=== PATIENT | male | born 1960 | race Caucasian/White ===

== ENCOUNTER 2022-12-12 10:47 | Emergency (ER) | payer MEDICAID ==
[~2022-12-12] VITALS: Ht 182.9 cm; Wt 90.7 kg
[2022-12-12 11:04] VITALS: BP_SYST 158
--- NOTE | 2022-12-12 11:12 | NUR ---
EMT at bedside now performing EKG
[2022-12-12] MEDS ORDERED: LORazepam 2 MG/ML VIAL IVP ONE ×2 (11:15→13:00)
[2022-12-12] MEDS ORDERED: NS 1000 ML IV.SOLN IV ONE (11:15)
[2022-12-12] MEDS ORDERED: ONDANSETRON HCL 4 MG/2 ML VIAL IVP ONE (11:15)
--- NOTE | 2022-12-12 11:19 | NUR ---
ER at bedside examining patient.
[2022-12-12] MEDS ORDERED: NACL 0.9% 1,000 ML IV ONE (11:30)
[2022-12-12] MEDS ORDERED: FOLIC ACID 1 MG, THIAMINE HCL 100 MG, MAGNESIUM SULFATE 1 GM, MVI 10 ML in NACL 0.9% 1,... IV ONE (11:30)
--- NOTE | 2022-12-12 11:36 | NUR ---
lab at bedside now
--- NOTE | 2022-12-12 11:37 | NUR ---
# 20 gauge angiocath placed to LAC. Use of asceptic technique. Opsite placed over site. Blood return noted. Blood for lab drawn from site. Flushed with 10 cc of normal saline. No evidence of infiltration noted. Patient tolerated well.
--- NOTE | 2022-12-12 11:37 | NUR ---
Note josh in EDM - 12/12/22 at 1149 by [email or web address] # [] gauge angiocath placed to []. Use of asceptic technique. Opsite placed over site. Blood return noted. Blood for lab drawn from site. Flushed with 10 cc of normal saline. No evidence of infiltration noted. Patient tolerated well.
--- NOTE | 2022-12-12 11:45 | NUR ---
Banana bag requested from pharmacy
[2022-12-12 11:50] LABS: EOSINOPHILS % (AUTO) 0.2 % (0.0-4.0); LYMPHOCYTES # (AUTO) 3.4 K/uL (1.0-5.5); MONOCYTES # (AUTO) 0.6 K/uL (0.0-1.0); NEUTROPHILS # (AUTO) 3.6 K/uL (1.8-7.7); WHITE BLOOD COUNT (AUTO) 7.7 K/uL (4.8-10.8)
[2022-12-12 11:57] LABS: BASOPHILS # (AUTO) 0.1 K/uL (0.0-0.2); BASOPHILS % (AUTO) 1.6 % (0.0-2.0); HEMATOCRIT 45.4 % (36-54); HEMOGLOBIN 15.3 g/dL (14.0-18.0); LYMPHOCYTES % (AUTO) 43.7 % (20.5-51.5); MEAN CORPUSCULAR HEMOGLOBIN 31 pg (27-31); MEAN CORPUSCULAR HGB CONC 34 % (32-36); MEAN CORPUSCULAR VOLUME 92 fL (79.0-98.0); MONOCYTES % (AUTO) 7.3 % (1.7-9.3); NEUTROPHILS % (AUTO) 47.2 % (40.0-70.0); PLATELET COUNT (AUTO) 127 K/uL (130-430); RED BLOOD CELL COUNT(AUTO) 4.91 MIL/uL (4.2-6.2); RED CELL DISTRIBUTION WIDTH 14.4 % (9.0-15.0)
[2022-12-12 12:04] LABS: CALCIUM 8.4 mg/dL (8.4-11.0); CREATININE 1.19 mg/dL (0.55-1.30)
[2022-12-12 12:08] LABS: ALBUMIN 3.8 g/dL (3.4-4.8); TOTAL BILIRUBIN 0.9 mg/dL (0.0-1.0)
--- NOTE | 2022-12-12 12:17 | NUR ---
Follow up call made to pharmacy for banana bag
[2022-12-12 12:41] LABS: INR 1.1 (0.80-1.20)
--- NOTE | 2022-12-12 12:41 | NUR ---
Pharmacy states banana bag on the way
--- NOTE | 2022-12-12 12:50 | NUR ---
Patient has not provided urine yet, patient states unable to urinate at this time.
[2022-12-12] MEDS ORDERED: THIAMINE HCL 100 MG, MAGNESIUM SULFATE 1 GM in NS 100 ML IV ONE (13:00)
[2022-12-12] MEDS ORDERED: POTASSIUM CHLORIDE 20 MEQ/PKT PACKET PO ONE (13:00)
[2022-12-12] MEDS ORDERED: FOLIC ACID 1 MG, MVI 10 ML in NACL 0.9% 1,000 ML IV ONE (13:00)
[2022-12-12 16:50] VITALS: BP_SYST 153
--- NOTE | 2022-12-12 18:26 | NUR ---
Patient given a sandwich per Dr. Saha request.
--- NOTE | 2022-12-12 18:45 | NUR ---
Patient able to ambulate, michaeler being called now
--- NOTE | 2022-12-12 19:04 | NUR ---
Patient states he drove here. Patient placed in UBER a&ox4 and stable. Patient visualized crossing [facility] [employer]
== END 2022-12-12 18:50 | disposition home or self-care (01) ==
LOC: SED 10:47
DX: F10.239 Alcohol dependence with withdrawal, unspecified (principal); R74.01 Elevation of levels of liver transaminase levels; E87.6 Hypokalemia; R11.0 Nausea; I10 Essential (primary) hypertension; F41.9 Anxiety disorder, unspecified; Z88.2 Allergy status to sulfonamides; Z79.899 Other long term (current) drug therapy; Y90.6 Blood alcohol level of 120-199 mg/100 ml
CPT/HCPCS: 99291; 96365; 96366; 96375; 96361; 80053; 82009; 85025; 85610; 85730; 87040; 36415; 93005; 71045; 96368; 96376; 83605; G0482; J3490; J2060; J3475; J2405; J3411; J7030

== ENCOUNTER 2023-08-25 14:58 | Inpatient (IN) | payer MEDICAID ==
[~2023-08-25] VITALS: Ht 180.3 cm; Wt 90.7 kg
[2023-08-25 15:00] VITALS: BP_SYST 128; PULSE 88; RESP 18; TEMP 97.2; O2SAT 97
[2023-08-25 15:38] LABS: BASOPHILS # (AUTO) 0.1 K/uL (0.0-0.2); BASOPHILS % (AUTO) 1.5 % (0.0-2.0); EOSINOPHILS % (AUTO) 0.3 % (0.0-4.0); HEMATOCRIT 42.3 % (36-54); HEMOGLOBIN 14.6 g/dL (14.0-18.0); LYMPHOCYTES # (AUTO) 1.7 K/uL (1.0-5.5); LYMPHOCYTES % (AUTO) 23.7 % (20.5-51.5); MEAN CORPUSCULAR HEMOGLOBIN 33 pg (27-31); MEAN CORPUSCULAR HGB CONC 35 % (32-36); MEAN CORPUSCULAR VOLUME 95 fL (79.0-98.0); MONOCYTES # (AUTO) 0.9 K/uL (0.0-1.0); MONOCYTES % (AUTO) 12.3 % (1.7-9.3); NEUTROPHILS # (AUTO) 4.4 K/uL (1.8-7.7); NEUTROPHILS % (AUTO) 62.2 % (40.0-70.0); PLATELET COUNT (AUTO) 270 K/uL (130-430); RED BLOOD CELL COUNT(AUTO) 4.46 MIL/uL (4.2-6.2); RED CELL DISTRIBUTION WIDTH 15.1 % (9.0-15.0)
[2023-08-25 16:14] LABS: CALCIUM 8.8 mg/dL (8.4-11.0); CREATININE 1.29 mg/dL (0.55-1.30); POTASSIUM 3.4 mmol/L (3.5-5.1)
[2023-08-25 16:24] LABS: ALBUMIN 3.7 g/dL (3.4-4.8); BILIRUBIN,DIRECT 0.1 mg/dL (0.0-0.3); TOTAL BILIRUBIN 0.6 mg/dL (0.0-1.0); TOTAL PROTEIN, SERUM 7.4 g/dL (6.4-8.3)
[2023-08-25 16:58] LABS: BARBITURATE, URINE NEGATIVE (NEG <=200); BENZODIAZEPINE, URINE POSITIVE (NEG <=150); URINE AMPHETAMINE NEGATIVE (NEG <=500)
[2023-08-25 16:59] LABS: CANNABINOID, URINE NEGATIVE (NEG <=50); COCAINE, URINE NEGATIVE (NEG <=150); METHAMPHETAMINES SCREEN,URINE NEGATIVE (NEG <=500); OPIATE, URINE NEGATIVE (NEG <=100); PHENCYCLIDINE SCREEN,URINE NEGATIVE (NEG <=25); UR TRICYCLIC ANTIDEPRESSANTS NEGATIVE (NEG <=300); URINE METHADONE NEGATIVE (NEG <=200); URINE OXYCODONE SCREEN NEGATIVE (NEG <=100)
[2023-08-25] MEDS: NACL 0.9% 1,000 ML IV ONE (21:35)
[2023-08-25] MEDS: THIAMINE HCL 200 MG/2 ML VIAL IM ONE (21:45)
[2023-08-25] MEDS: LORazepam 2 MG/ML VIAL IVP ONE (21:48)
[2023-08-25 22:10] LABS: ALCOHOL, BLOOD 248 mg/dL (<10); LIPASE 21 U/L (16-77)
[2023-08-26] MEDS: ONDANSETRON HCL 4 MG/2 ML VIAL IVP ONE (02:03)
[2023-08-26] MEDS ORDERED: METO-308 PO (03:02)
[2023-08-26] MEDS ORDERED: SIMV-43 PO (03:02)
[2023-08-26] MEDS ORDERED: ALLO300T2 PO (03:02)
[2023-08-26] MEDS ORDERED: HYDR12.55 PO (03:02)
[2023-08-26] MEDS ORDERED: FOLIC ACID 1 MG, THIAMINE HCL 100 MG, MAGNESIUM SULFATE 1 GM, MVI 10 ML in NACL 0.9% 1,... IV ONE (03:30)
[2023-08-26] MEDS: LORazepam 2 MG/ML VIAL IVP PRN ×2 (04:29→18:26)
[2023-08-26] MEDS: NS 500 ML IV ONE (04:41)
[2023-08-26 04:50] VITALS: BP_SYST 162; PULSE 105; RESP 18; TEMP 98.9; O2SAT 96
[2023-08-26] MEDS: ONDANSETRON HCL 4 MG/2 ML VIAL IVP PRN (06:38)
[2023-08-26] MEDS: FOLIC ACID 1 MG, MVI 10 ML in NACL 0.9% 1,000 ML IV ONE (07:00)
[2023-08-26 08:00] VITALS: BP_SYST 168; PULSE 100; RESP 20; TEMP 98.6; O2SAT 96
[2023-08-26] MEDS: THIAMINE HCL 100 MG, MAGNESIUM SULFATE 1 GM in NS 100 ML IV ONE (09:51)
[2023-08-26] MEDS ORDERED: NALOXONE HCL 0.4 MG/ML AMP (NARCAN) IVP PRN ×2 (10:00)
[2023-08-26] MEDS ORDERED: NON-FORMULARY MEDICATION (Metoprolol Succinate 1 TAB) PO SCH (10:00)
[2023-08-26] MEDS ORDERED: NON-FORMULARY MEDICATION (Hydrochlorothiazide 1 TAB) PO SCH (10:00)
[2023-08-26] MEDS ORDERED: ONDANSETRON HCL 4 MG/2 ML VIAL IVP PRN (10:00)
[2023-08-26] MEDS ORDERED: chlordiazePOXIDE HCL 10 MG CAPSULE PO PRN (10:00)
[2023-08-26] MEDS ORDERED: ACETAMINOPHEN 325 MG TABLET PO PRN ×2 (10:00→10:45)
[2023-08-26] MEDS ORDERED: HYDROcodone/ACETAMIN 5-325 MG TAB (NORCO/ VICODIN) PO PRN (10:00)
[2023-08-26 10:41] LABS: CALCIUM 8.6 mg/dL (8.4-11.0); CREATININE 1.12 mg/dL (0.55-1.30); POTASSIUM 3.5 mmol/L (3.5-5.1)
[2023-08-26 10:44] LABS: EOSINOPHILS % (AUTO) 0.1 % (0.0-4.0); HEMATOCRIT 39.7 % (36-54); HEMOGLOBIN 13.8 g/dL (14.0-18.0); LYMPHOCYTES # (AUTO) 0.7 K/uL (1.0-5.5); LYMPHOCYTES % (AUTO) 19.3 % (20.5-51.5); MEAN CORPUSCULAR HEMOGLOBIN 33 pg (27-31); MEAN CORPUSCULAR HGB CONC 35 % (32-36); MEAN CORPUSCULAR VOLUME 95 fL (79.0-98.0); MONOCYTES # (AUTO) 0.7 K/uL (0.0-1.0); MONOCYTES % (AUTO) 17.9 % (1.7-9.3); NEUTROPHILS # (AUTO) 2.3 K/uL (1.8-7.7); NEUTROPHILS % (AUTO) 61.7 % (40.0-70.0); PLATELET COUNT (AUTO) 200 K/uL (130-430); RED BLOOD CELL COUNT(AUTO) 4.19 MIL/uL (4.2-6.2); RED CELL DISTRIBUTION WIDTH 15.3 % (9.0-15.0); WHITE BLOOD COUNT (AUTO) 3.7 K/uL (4.8-10.8)
[2023-08-26] MEDS: ALLOPURINOL 300 MG TABLET (ZYLOPRIM) PO ONE (11:01)
[2023-08-26] MEDS: METOPROLOL SUCCINATE 50 MG TAB.SR.24H (TOPROL XL) PO ONE (11:04)
[2023-08-26] MEDS: HYDROCHLOROTHIAZIDE 12.5 MG CAPSULE (HCTZ) PO ONE (11:13)
[2023-08-26] MEDS ORDERED: hydrALAZINE HCL 20 MG/ML VIAL IVP PRN (15:15)
[2023-08-26] MEDS ORDERED: dilTIAZem HCL IVP 5 MG/ML VIAL IVP PRN (15:15)
[2023-08-26 16:07] VITALS: BP_SYST 174; PULSE 86; RESP 18; TEMP 101.1; O2SAT 96
[2023-08-26] MEDS: HYDROcodone/ACETAMIN 10-325 MG TAB PO PRN (16:10)
[2023-08-26 20:00] VITALS: BP_SYST 163; PULSE 89; RESP 18; TEMP 99; O2SAT 94
[2023-08-26] MEDS: SIMVASTATIN 20 MG TABLET PO SCH (20:20)
[2023-08-26] MEDS: METOPROLOL TARTRATE 50 MG TABLET PO SCH (20:20)
[2023-08-27 00:10] VITALS: BP_SYST 158; PULSE 70; RESP 16; TEMP 98.7; O2SAT 93
[2023-08-27 05:40] LABS: BASOPHILS # (AUTO) 0.1 K/uL (0.0-0.2); BASOPHILS % (AUTO) 1.2 % (0.0-2.0); EOSINOPHILS % (AUTO) 0.3 % (0.0-4.0); HEMATOCRIT 42.8 % (36-54); HEMOGLOBIN 14.9 g/dL (14.0-18.0); LYMPHOCYTES # (AUTO) 1.1 K/uL (1.0-5.5); LYMPHOCYTES % (AUTO) 22.1 % (20.5-51.5); MEAN CORPUSCULAR HEMOGLOBIN 33 pg (27-31); MEAN CORPUSCULAR HGB CONC 35 % (32-36); MEAN CORPUSCULAR VOLUME 95 fL (79.0-98.0); MONOCYTES # (AUTO) 0.8 K/uL (0.0-1.0); MONOCYTES % (AUTO) 14.6 % (1.7-9.3); NEUTROPHILS # (AUTO) 3.2 K/uL (1.8-7.7); NEUTROPHILS % (AUTO) 61.8 % (40.0-70.0); PLATELET COUNT (AUTO) 212 K/uL (130-430); RED BLOOD CELL COUNT(AUTO) 4.51 MIL/uL (4.2-6.2); RED CELL DISTRIBUTION WIDTH 14.9 % (9.0-15.0); WHITE BLOOD COUNT (AUTO) 5.2 K/uL (4.8-10.8)
[2023-08-27 06:01] LABS: ALBUMIN 3.5 g/dL (3.4-4.8); CREATININE 1.05 mg/dL (0.55-1.30); POTASSIUM 3.5 mmol/L (3.5-5.1); TOTAL BILIRUBIN 1.2 mg/dL (0.0-1.0); TOTAL PROTEIN, SERUM 7.6 g/dL (6.4-8.3)
[2023-08-27 08:05] VITALS: BP_SYST 133; PULSE 73; RESP 18; TEMP 97.5; O2SAT 95
[2023-08-27] MEDS: ALLOPURINOL 300 MG TABLET (ZYLOPRIM) PO SCH (08:23)
[2023-08-27 08:30] VITALS: O2SAT 95
[2023-08-27] MEDS ORDERED: CHLO10CA6 PO (08:49)
[2023-08-27] MEDS ORDERED: METO-442 PO (08:49)
[2023-08-27] MEDS ORDERED: METOPROLOL SUCCINATE 50 MG TAB.SR.24H (TOPROL XL) PO SCH (09:00)
[2023-08-27] MEDS ORDERED: HYDROCHLOROTHIAZIDE 12.5 MG CAPSULE (HCTZ) PO SCH (09:00)
== END 2023-08-27 09:40 | disposition left against medical advice (07) | DRG 422 ==
LOC: SED 14:58 → STU 08-26 03:23
PROVIDERS: ADMIT Preventive Medicine Preventive Medicine/Occupational Environmental Medicine; ATTEND Preventive Medicine Preventive Medicine/Occupational Environmental Medicine
DX: E86.0 Dehydration (principal); R65.10 Systemic inflammatory response syndrome (SIRS) of non-infectious origin without acute organ dysfunction; E78.5 Hyperlipidemia, unspecified; F10.129 Alcohol abuse with intoxication, unspecified; E87.6 Hypokalemia; S00.83XA Contusion of other part of head, initial encounter; I10 Essential (primary) hypertension; M10.9 Gout, unspecified; W18.39XA Other fall on same level, initial encounter; R74.01 Elevation of levels of liver transaminase levels; F10.139 Alcohol abuse with withdrawal, unspecified; Y90.9 Presence of alcohol in blood, level not specified; Z53.29 Procedure and treatment not carried out because of patient's decision for other reasons; Z88.2 Allergy status to sulfonamides; Y93.89 Activity, other specified; Y92.89 Other specified places as the place of occurrence of the external cause; Y99.8 Other external cause status
CPT/HCPCS: 36415; 70450-TC; 72125-TC; 80048; 80053; 80076; 80307; 82948; 83690; 85025; 97112-GP; 97530-GP; 99285; G0378; G0482; J2060; J2405; J3411; J3475; J3490; J7030